=== PATIENT | female | born 1970 | race Caucasian/White ===

== ENCOUNTER → 2018-12-19 | Outpatient (CLI) | payer BC ==
[2018-12-19 08:12] LABS: ADD MAN DIFF? NO
[2018-12-19 08:13] LABS: BASOPHILS % 0.7 % (0.0-2.0); EOSINOPHILS # 0.2 10^3/ul (0.0-0.5); EOSINOPHILS % 3.4 % (0.0-7.0); HEMATOCRIT 31.9 % (37.0-47.0); HEMOGLOBIN 9.7 g/dl (12.0-16.0); LYMPHOCYTES # 1.5 10^3/ul (0.8-2.9); LYMPHOCYTES % 34.1 % (15.0-51.0); MEAN CORPUSCULAR HEMOGLOBIN 22.2 pg (29.0-33.0); MEAN CORPUSCULAR HGB CONC 30.4 g/dl (32.0-37.0); MEAN CORPUSCULAR VOLUME 73.2 fl (82.0-101.0); MONOCYTE # 0.3 10^3/ul (0.3-0.9); MONOCYTES % 7.3 % (0.0-11.0); NEUTROPHIL # 2.4 10^3/ul (1.6-7.5); NEUTROPHILS % 54.3 % (39.0-77.0); PLATELET COUNT 387 10^3/UL (140-415); RED BLOOD COUNT 4.36 10^6/ul (4.20-5.40); RED CELL DISTRIBUTION WIDTH 17.6 % (11.5-14.5)
[2018-12-19 08:13] LABS: WHITE BLOOD COUNT 4.4 10^3/ul (4.8-10.8)
[2018-12-19 08:22] LABS: HEMOGLOBIN A1C 5.7 % (0-5.9)
[2018-12-19 08:32] LABS: INR 0.89; PROTIME 12.2 Sec (11.9-14.9)
[2018-12-19 08:33] LABS: PARTIAL THROMBOPLASTIN TIME 24.3 Sec (23.0-35.0)
[2018-12-19 08:37] LABS: ALANINE AMINOTRANSFERASE 29 IU/L (13-69); ALBUMIN 4.2 g/dl (3.3-4.9); ALBUMIN/GLOBULIN RATIO 1.27; ALKALINE PHOSPHATASE 75 IU/L (42-121); ANION GAP 10 (5-13); ASPARTATE AMINO TRANSFERASE 23 IU/L (15-46); BILIRUBIN,INDIRECT 0.2 mg/dl (0-1.1); BILIRUBIN,TOTAL 0.2 mg/dl (0.2-1.3); BLOOD UREA NITROGEN 12 mg/dl (7-20); CALCIUM 9.4 mg/dl (8.4-10.2); CARBON DIOXIDE 25 mmol/L (21-31); CHLORIDE 105 mmol/L (97-110); CHOLESTEROL 146 mg/dl (100-200); CREATININE 0.68 mg/dl (0.44-1.00); Estimated GFR > 60 mL/min (>60); GLUCOSE 113 mg/dl (70-220); HDL CHOLESTEROL 36 mg/dl (34-88); LDL CHOLESTEROL,CALCULATED 86 mg/dl; POTASSIUM 4.2 mmol/L (3.5-5.1); SODIUM 140 mmol/L (135-144); TOTAL PROTEIN 7.5 g/dl (6.1-8.1); TRIGLYCERIDES 121 mg/dl (0-149)
[2018-12-19 08:53] LABS: T4 (THYROXINE) 9.3 ug/dl (5.5-11.0)
== END | disposition home or self-care (01) ==
LOC: LAB 07:47
DX: E03.9 Hypothyroidism, unspecified (principal); D68.9 Coagulation defect, unspecified; E78.5 Hyperlipidemia, unspecified
CPT/HCPCS: 80053; 80061; 83036; 84436; 84443; 85025; 85610; 85730

== ENCOUNTER → 2019-01-27 | Outpatient (CLI) | payer BC ==
[2019-01-27 12:11] LABS: ADD MAN DIFF? NO
[2019-01-27 12:14] LABS: WHITE BLOOD COUNT 5.4 10^3/ul (4.8-10.8)
[2019-01-27 12:14] LABS: BASOPHILS % 0.7 % (0.0-2.0); EOSINOPHILS # 0.2 10^3/ul (0.0-0.5); EOSINOPHILS % 2.8 % (0.0-7.0); HEMATOCRIT 30.5 % (37.0-47.0); LYMPHOCYTES # 1.4 10^3/ul (0.8-2.9); LYMPHOCYTES % 25.6 % (15.0-51.0); MEAN CORPUSCULAR HGB CONC 29.5 g/dl (32.0-37.0); MEAN CORPUSCULAR VOLUME 74.6 fl (82.0-101.0); MEAN PLATELET VOLUME 8.8 fl (7.4-10.4); MONOCYTE # 0.3 10^3/ul (0.3-0.9); MONOCYTES % 6.1 % (0.0-11.0); NEUTROPHIL # 3.5 10^3/ul (1.6-7.5); NEUTROPHILS % 64.6 % (39.0-77.0); PLATELET COUNT 474 10^3/UL (140-415); RED BLOOD COUNT 4.09 10^6/ul (4.20-5.40); RED CELL DISTRIBUTION WIDTH 18.7 % (11.5-14.5)
[2019-01-27 12:30] LABS: ANION GAP 6 (5-13); BLOOD UREA NITROGEN 8 mg/dl (7-20); CALCIUM 9.3 mg/dl (8.4-10.2); CARBON DIOXIDE 28 mmol/L (21-31); CHLORIDE 104 mmol/L (97-110); CREATININE 0.66 mg/dl (0.44-1.00); Estimated GFR > 60 mL/min (>60); GLUCOSE 96 mg/dl (70-220); POTASSIUM 4.1 mmol/L (3.5-5.1); SODIUM 138 mmol/L (135-144)
[2019-01-27 12:44] LABS: THROMBIN TIME 15.4 SEC (13.8-19.1)
[2019-01-27 13:15] LABS: FERRITIN 4.7 ng/ml (6.2-137.0)
[2019-01-27 13:19] LABS: ERYTHROCYTE SEDIMENTATION RATE 23 mm/Hr (0-20)
[2019-01-29 12:01] LABS: PROTEIN C 112 % normal (70-180)
== END | disposition home or self-care (01) ==
LOC: LAB 11:35
DX: D68.59 Other primary thrombophilia (principal); D50.9 Iron deficiency anemia, unspecified
CPT/HCPCS: 80048; 82728; 83890; 85025; 85300; 85302; 85305; 85613; 85651; 85670; 86147

== ENCOUNTER → 2019-02-04 | Outpatient (CLI) | payer BC ==
[2019-02-05 21:22] LABS: HEMATOCRIT 30.7 % (35.0-45.0); HEMOGLOBIN 9.3 g/dL (11.7-15.5); MCH 21.9 pg (27.0-33.0); MCV 72.2 fL (80.0-100.0); RDW 17.9 % (11.0-15.0); RED BLOOD CELL COUNT 4.25 Million/uL (3.80-5.10)
[2019-02-07 08:06] LABS: HEMOGLOBIN A 98.3 % (>96.0); HEMOGLOBIN A2 (QUANT) 1.7 % (1.8-3.5); HEMOGLOBIN F <1.0 % (<2.0)
== END | disposition home or self-care (01) ==
LOC: LAB 12:53
DX: D56.9 Thalassemia, unspecified (principal)
CPT/HCPCS: 83020

== ENCOUNTER → 2019-06-02 | Outpatient (CLI) | payer BC ==
[2019-06-02 08:51] LABS: ADD MAN DIFF? NO
[2019-06-02 08:57] LABS: WHITE BLOOD COUNT 5.2 10^3/ul (4.8-10.8)
[2019-06-02 08:57] LABS: BASOPHILS % 0.8 % (0.0-2.0); EOSINOPHILS # 0.1 10^3/ul (0.0-0.5); EOSINOPHILS % 2.1 % (0.0-7.0); HEMOGLOBIN 11.7 g/dl (12.0-16.0); LYMPHOCYTES # 1.9 10^3/ul (0.8-2.9); LYMPHOCYTES % 36.6 % (15.0-51.0); MEAN CORPUSCULAR HEMOGLOBIN 26.1 pg (29.0-33.0); MEAN CORPUSCULAR HGB CONC 31.6 g/dl (32.0-37.0); MEAN CORPUSCULAR VOLUME 82.6 fl (82.0-101.0); MEAN PLATELET VOLUME 9.2 fl (7.4-10.4); MONOCYTE # 0.4 10^3/ul (0.3-0.9); MONOCYTES % 7.7 % (0.0-11.0); NEUTROPHIL # 2.7 10^3/ul (1.6-7.5); NEUTROPHILS % 52.4 % (39.0-77.0); PLATELET COUNT 353 10^3/UL (140-415); RED BLOOD COUNT 4.48 10^6/ul (4.20-5.40); RED CELL DISTRIBUTION WIDTH 18.7 % (11.5-14.5)
[2019-06-02 09:16] LABS: IRON 42 ug/dl (35-150)
[2019-06-02 09:17] LABS: ANION GAP 7 (5-13); BLOOD UREA NITROGEN 15 mg/dl (7-20); CARBON DIOXIDE 29 mmol/L (21-31); CHLORIDE 105 mmol/L (97-110); CREATININE 0.66 mg/dl (0.44-1.00); GLUCOSE 96 mg/dl (70-220); POTASSIUM 4.1 mmol/L (3.5-5.1); SODIUM 141 mmol/L (135-144)
[2019-06-02 09:18] LABS: ALANINE AMINOTRANSFERASE 20 IU/L (13-69); ALBUMIN 4.3 g/dl (3.3-4.9); ALBUMIN/GLOBULIN RATIO 1.38; ALKALINE PHOSPHATASE 68 IU/L (42-121); ASPARTATE AMINO TRANSFERASE 25 IU/L (15-46); BILIRUBIN,INDIRECT 0.5 mg/dl (0-1.1); BILIRUBIN,TOTAL 0.5 mg/dl (0.2-1.3); CALCIUM 9.4 mg/dl (8.4-10.2); CHOL/HDL RATIO 3.4 RATIO; CHOLESTEROL 164 mg/dl (100-200); Estimated GFR > 60 mL/min (>60); HDL CHOLESTEROL 47 mg/dl (34-88); LDL CHOLESTEROL,CALCULATED 93 mg/dl; TOTAL PROTEIN 7.4 g/dl (6.1-8.1); TRIGLYCERIDES 122 mg/dl (0-149)
[2019-06-02 09:25] LABS: % IRON SATURATION 10 % SAT (22-52); TOTAL IRON BINDING CAPACITY 424 ug/dl (241-421)
[2019-06-02 09:52] LABS: FERRITIN 5.8 ng/ml (6.2-137.0)
[2019-06-02 10:26] LABS: ERYTHROCYTE SEDIMENTATION RATE 16 mm/Hr (0-20)
[2019-06-02 11:02] LABS: HEMOGLOBIN A1C 5.4 % (0-5.9)
== END | disposition home or self-care (01) ==
LOC: LAB 07:50
DX: E78.5 Hyperlipidemia, unspecified (principal)
CPT/HCPCS: 80053; 80061; 82728; 83036; 83540; 85025; 85651